=== PATIENT | female | born 1935 | race Two or more races ===

== ENCOUNTER 2024-04-03 00:13 | Inpatient (IN) | payer MEDICARE, MEDICAID ==
[~2024-04-03] VITALS: Ht 142.2 cm; Wt 32.0 kg
[2024-04-03 01:08] LABS: Basophils # (auto) 0 10 ^3/uL (0-0.2); Basophils % (auto) 0.3 % (0.0-2.0); Eosinophils # (auto) 0 10 ^3/uL (0-0.8); Eosinophils % (auto) 0.3 % (0.0-7.0); Hematocrit 42.1 % (36.0-46.0); Hemoglobin 13.9 g/dL (12.2-16.2); Lymphocytes # (auto) 0.4 10 ^3/uL (0.4-5.4); Lymphocytes % (auto) 2.4 % (10.0-50.0); Mean Corpuscular Hemoglobin 30.2 pg (28.0-32.0); Mean Corpuscular Volume 91.5 fL (80.0-100.0); Monocytes # (auto) 0.6 10 ^3/uL (0-1.3); Platelet Count (auto) 227 10^3/uL (140-450); Red Cell Distribution Width 13.1 % (11.8-14.3); White Blood Cell 15.1 10^3/uL (4.4-10.8)
[2024-04-03 01:10] LABS: Chloride 103 mmol/L (98-107); Potassium 3.8 mmol/L (3.5-5.1); Sodium 139 mmol/L (136-145)
[2024-04-03 01:11] LABS: Anion Gap 10 (5-15); Carbon Dioxide 26 mmol/L (20-31)
[2024-04-03 01:16] LABS: BUN/Creatinine Ratio 52.1 (10.0-20.0); Lipase 25 U/L (12-53)
[2024-04-03 01:35] LABS: Blood Urea Nitrogen 38 mg/dL (9-23); Glucose 393 mg/dL (74-106)
--- NOTE | 2024-04-03 02:23 | ED.PDOC ---
GI ASSESSMENT HPI Comments 88-year-old female brought in by daughter. Daughter states patient has had three episodes of vomiting. Woke up at 9:00 a.m.. had an episode of vomiting patient took a nap when she woke up again she was feeling tired and weak. Had two more episodes of vomiting. Daughter states she may have eaten some bad or drinking some bad. Has not eaten anything all day. Daughter states that when she stands up patient says she feels like she was going to pass out. Nothing makes it better, standing and walking makes it worse. 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 SPIDER History: No Pertinent ASSEMBLER CATERPILLAR SPIDER History Constitutional: denies: chills, diaphoresis, fatigue, fever, malaise, sweats, weakness, others EENTM: denies: blurred vision, double vision, ear bleeding, ear discharge, ear drainage, ear pain, ear ringing, eye pain, eye redness, hearing loss, mouth pain, mouth swelling, nasal discharge, nose bleeding, nose congestion, nose pain, photophobia, tearing, throat pain, throat swelling, voice changes, others Respiratory: denies: cough, hemoptysis, orthopnea, SOB at rest, shortness of breath, SOB with excertion, stridor, wheezing, others Cardiovascular: denies: chest pain, dizzy spells, diaphoresis, Dyspnea on exertion, edema, irregular heart beat, left arm pain, lightheadedness, palpitations, PND, syncope, others Gastrointestinal: reports: nausea, vomiting; denies: abdomen distended, abdominal pain, blood streaked bowels, constipated, diarrhea, dysphagia, difficulty swallowing, hematemesis, melena, poor appetite, poor fluid intake, rectal bleeding, rectal pain, others Genitourinary: denies: abnormal vagina bleeding, burning, dyspareunia, dysuria, flank pain, frequency, hematuria, incontinence, pain, , vagina discharge, urgency, others Neurological: denies: dizziness, fainting, headache, left sided numbness, left sided weakness, numbness, paresthesia, pre-existing deficit, right sided numbness, right sided weakness, seizure, speech problems, tingling, tremors, weakness, others Musculoskeletal: denies: back pain, gout, joint pain, joint swelling, muscle pain, muscle stiffness, neck pain, others Integumetry: denies: bruises, change in color, change in hair/nails, dryness, laceration, lesions, lumps, rash, wounds, others Allergic/Immunocompromised: denies: Difficulty Healing, Frequent Infections, Hives, Itching, others Hematologic/Lymphatic: denies: anemia, blood clots, easy bleeding, easy bruising, swollen glands, others Physical Exam General Appearance: No Apparent Distress, Normal HEENT: Normal ENT Inspection, Pharynx Normal, TMs Normal Neck: Full Range of Motion Respiratory: Chest Non-Tender, Lungs Clear, No Accessory Muscle Use, No Respiratory Distress, Normal Breath Sounds Cardiovascular: No Edema, No JVD, No Murmur, No Gallop, Normal Peripheral Pulses, Regular Rate/Rhythm Breast Exam: Deferred Gastrointestinal: No Organomegaly, Non Tender, No Pulsatile Mass, Normal Bowel Sounds, Soft Genitalia: Deferred Pelvic: Deferred Rectal: Deferred Extremities: No calf tenderness, Normal capillary refill, Normal inspection, Normal range of motion, Non-tender, No pedal edema Musculoskeletal : Apperance: Normal Neurologic: Alert, clinical outcomes manager II-XII nml as Tested, No Motor Deficits, Normal Affect, Normal Mood, No Sensory Deficits Cerebellar Function: Normal Reflexes: Normal Skin: Dry, Normal Color, Warm Lymphatic: No Adenopathy Was a procedure done? Was a procedure done?: No GI differential Dx Differential Diagnosis: Gastritis/PUD, Gastroenteritis, GI hemorrhage, Hernia, UTI, Dehydration, Diabetes/ DKA X-Ray, Labs, Meds, VS Vital Signs Date Time Temp Pulse Resp B/P (MAP) Pulse Ox O2 Delivery O2 Flow Rate FiO2 04/03/24 00:30 98.0 81 18 171/64 (99) 97 Lab Test 04/03/24 00:48 04/03/24 00:25 Range/Units White Blood Count 15.1 H 4.4-10.8 10^3/uL Red Blood Count 4.60 4.0-5.20 10^6/uL Hemoglobin 13.9 12.2-16.2 g/dL Hematocrit 42.1 36.0-46.0 % Mean Corpuscular Volume 91.5 80.0-100.0 fL Mean Corpuscular Hemoglobin 30.2 28.0-32.0 pg Mean Corpuscular Hemoglobin Concent 33.0 32.0-36.0 g/dL Red Cell Distribution Width 13.1 11.8-14.3 % Platelet Count 227 140-450 10^3/uL Mean Platelet Volume 8.9 6.9-10.8 fL Neutrophils (%) (Auto) 93.0 H 37.0-80.0 % Lymphocytes (%) (Auto) 2.4 L 10.0-50.0 % Monocytes (%) (Auto) 4.0 0.0-12.0 % Eosinophils (%) (Auto) 0.3 0.0-7.0 % Basophils (%) (Auto) 0.3 0.0-2.0 % Neutrophils # (Auto) 14.0 H 1.6-8.6 10 ^3/uL Lymphocytes # (Auto) 0.4 0.4-5.4 10 ^3/uL Monocytes # (Auto) 0.6 0-1.3 10 ^3/uL Eosinophils # (Auto) 0 0-0.8 10 ^3/uL Basophils # (Auto) 0 0-0.2 10 ^3/uL Nucleated Red Blood Cells 0.0 % Sodium Level 139 136-145 mmol/L Potassium Level 3.8 3.5-5.1 mmol/L Chloride Level 103 98-107 mmol/L Carbon Dioxide Level 26 20-31 mmol/L Anion Gap 10 5-15 Blood Urea Nitrogen 38 H 9-23 mg/dL Creatinine 0.73 0.550-1.02 mg/dL Glomerular Filtration Rate Calc 80 >90 mL/min BUN/Creatinine Ratio 52.1 H 10.0-20.0 Serum Glucose 393 H 74-106 mg/dL Calcium Level 10.0 8.7-10.4 mg/dL Lipase 25 12-53 U/L POC Glucose 362 H 70-106 mg/dl Assigned to Dr. Dr. Morales Change of Shift?: Yes Departure 1 Departure Time of Disposition: 02:22 Impression: Primary Impression: Hyperglycemia Additional Impressions: Leukocytosis Qualified Codes: D72.825 - Bandemia Acute metabolic encephalopathy Disposition: ADMITTED INPATIENT Condition: Stable Critical Care Note Critical Care Time?: No Stability Stability form required: No Heart Score Heart Score: Heart Score Response (Comments) Value History N/A 0 EKG N/A 0 Age N/A 0 Risk Factors N/A 0 Troponin N/A 0 Total 0 TAYLOR WALKER Apr 03, 2024 02:23
--- NOTE | 2024-04-03 02:44 | DVH ---
CLINICAL HISTORY: vomiting TECHNIQUE: CT of the abdomen and pelvis was performed without intravenous contrast. This exam was per formed according to our departmental dose optimization program. Up-to-date CT equipment and radiation dose reduction techniques are utilized as appropriate. [Radimetrics Exposure Report] CTDI: [CTDIvol] DLP: 234.13 WID: COMPARISON: None FINDINGS: Lower Thorax: Lung bases are clear. Coronary artery calcifications are partially imaged, up to modera te in the left anterior descending artery. Mild aortic valve calcification. Trace pericardial fluid. Normal-sized heart Liver and Biliary system: Unremarkable. Spleen: Unremarkable. Adrenal Glands and Kidneys: Unremarkable. Pancreas and Retroperitoneum: Mildly atrophic pancreas. No retroperitoneal lymphadenopathy. Aorta and Major Vessels: Aortoiliac vessels are normal in caliber with mild calcified atherosclerotic plaque. Bowel, Mesentery and Peritoneal space: Normal caliber small and large bowel. Normal appendix. Scatter ed fluid-filled small bowel loops. There is no free air or fluid collection. Pelvis: Mildly atrophic uterus with calcified fibroids. Moderate distention of the urinary bladder. T here is no pelvic lymphadenopathy. Abdominal wall and Osseous Structures: Bony demineralization. Mild right convexity scoliosis of the l umbar spine. Moderate multilevel lower thoracic and lumbar spondylosis. No destructive osseous lesion prominent disc protrusions at L3-L4 and L4-L5 IMPRESSION: 1. Scattered fluid-filled small bowel loops which could reflect enteritis or be physiologic. 2. Moderate multilevel lumbar spondylosis with prominent disc protrusions at L3-L4 and L4-L5. 3. Fibroid uterus 4. Coronary artery calcifications partially imaged up to moderate in the left anterior descending art sushil; mild aortic valve calcifications.
[2024-04-03] MEDS: SODIUM CHLORIDE 0.9% 500 ML IV ONE ×2 (02:55→08:02)
[2024-04-03 02:56] LABS: Urine Bacteria FEW /hpf (None Seen); Urine Blood Negative /uL (Negative); Urine Clarity Clear (Clear); Urine Color Light-Yellow (Yellow); Urine Protein, UAD Negative (Negative); Urine Specific Gravity 1.025 (1.001-1.035); Urine Squamous Epithelial Cell FEW /hpf (<5); Urine Urobilinogen Normal (Negative); Urine WBC 4 /hpf (0 - 5)
[2024-04-03] MEDS: ONDANSETRON ODT 4 MG TAB PO ONE (02:56)
[2024-04-03] MEDS ORDERED: DEXTROSE (50%) 50ML SYRG IV PRN (03:00)
[2024-04-03] MEDS ORDERED: cloNIDine HCL 0.1 MG TAB PO PRN (03:00)
[2024-04-03] MEDS ORDERED: ACETAMINOPHEN 325 MG TAB PO PRN (03:00)
[2024-04-03] MEDS ORDERED: ONDANSETRON HCL 4 MG/2 ML VIAL IV PRN (03:00)
[2024-04-03 03:04] VITALS: PULSE 73; RESP 18; O2SAT 99
[2024-04-03 03:32] VITALS: BP 99/48; PULSE 82; RESP 16; TEMP 97.9; O2SAT 96
--- NOTE | 2024-04-03 04:00 | DVHHP2 ---
History of Present Illness Reason for Visit: Nausea and vomiting History of Present Illness 88-year-old female presents for evaluation of nausea and vomiting. Patient presents with a one day history of multiple episodes of nausea and vomiting. Patient has decreased appetite. Denies abdominal pain or diarrhea. No fever or chills. No other acute complaints reported. Past Medical History Hypertension diabetes mellitus Past Surgical History Denies Family History Noncontributory Smoke: No ALCOHOL: none Drugs: None Lives: with Family Review of Systems Review of Systems Review of systems are currently negative otherwise addressed in HPI Allergies: Coded Allergies: NO KNOWN ALLERGIES (Unverified , 04/03/24) Medications Current Medications Medications Dose Ordered Sig/[place] Route Start Time Stop Time Status Last Admin Dose Admin Metronidazole 100 ml @ 100 mls/hr Q8HR IV 04/03/24 06:00 Lisinopril 10 mg DAILY PO 04/03/24 10:00 Clonidine HCl 0.1 mg Q6HP PRN PO 04/03/24 03:00 Diagnostic Test (Pha) 1 strip IQ4HR 04/03/24 04:00 Insulin Human Regular IQ4HR SC 04/03/24 04:00 Dextrose 50 ml UD PRN IV 04/03/24 03:00 Acetaminophen/ Hydrocodone Bitart 1 tab Q4HP PRN PO 04/03/24 03:00 Ondansetron HCl 4 mg Q4HP PRN IV 04/03/24 03:00 Acetaminophen 650 mg Q6HP PRN PO 04/03/24 03:00 Exam Vital Signs Vital Signs Date Time Temp Pulse Resp B/P (MAP) Pulse Ox O2 Delivery O2 Flow Rate FiO2 04/03/24 03:04 73 18 99 Room Air* 0 21 04/03/24 03:00 98.6 115/37 (63) 98.6 Exam Gen: 88-year-old female in mild distress Skin: Warm, dry, normal color and texture, no rash. HEENT: Normocephalic atraumatic, mucous membranes moist and pink. Neck: Cervical and supraclavicular nodes normal without enlargement, trachea is midline, thyroid gland is normal without masses. Pulmonary: Clear to auscultation and percussion bilaterally. Cardiac: Regular rate and rhythm. No murmur Abdomen: Soft, nontender, nondistended, bowel sounds present all 4 quadrants, no guarding, no rigidity, no organomegaly. Extremities: No cyanosis, clubbing, no edema Neuro: Cranial nerves II through XII grossly intact, normal affect and speech, no focal motor deficits. Labs/Xrays ORDERING PHYSICIAN: TAYLOR WALKER PROCEDURE(s): ABPL - CT AB PEL WO CON-NO ORAL OR IV REASON: vomiting ORDER NUMBER(s): [id number], ACCESSION NUMBER(s): [id number] CLINICAL HISTORY: vomiting TECHNIQUE: CT of the abdomen and pelvis was performed without intravenous contrast. This exam was performed according to our departmental dose optimization program. Up-to-date CT equipment and radiation dose reduction techniques are utilized as appropriate. [Radimetrics Exposure Report] CTDI: [CTDIvol] DLP: 234.13 WID: COMPARISON: None FINDINGS: Lower Thorax: Lung bases are clear. Coronary artery calcifications are partially imaged, up to moderate in the left anterior descending artery. Mild aortic valve calcification. Trace pericardial fluid. Normal-sized heart Liver and Biliary system: Unremarkable. Spleen: Unremarkable. Adrenal Glands and Kidneys: Unremarkable. Pancreas and Retroperitoneum: Mildly atrophic pancreas. No retroperitoneal lymphadenopathy. Aorta and Major Vessels: Aortoiliac vessels are normal in caliber with mild calcified atherosclerotic plaque. Bowel, Mesentery and Peritoneal space: Normal caliber small and large bowel. Normal appendix. Scattered fluid-filled small bowel loops. There is no free air or fluid collection. Pelvis: Mildly atrophic uterus with calcified fibroids. Moderate distention of the urinary bladder. There is no pelvic lymphadenopathy. Abdominal wall and Osseous Structures: Bony demineralization. Mild right convexity scoliosis of the lumbar spine. Moderate multilevel lower thoracic and lumbar spondylosis. No destructive osseous lesion prominent disc protrusions at L3-L4 and L4-L5 IMPRESSION: 1. Scattered fluid-filled small bowel loops which could reflect enteritis or be physiologic. 2. Moderate multilevel lumbar spondylosis with prominent disc protrusions at L3- L4 and L4-L5. 3. Fibroid uterus 4. Coronary artery calcifications partially imaged up to moderate in the left anterior descending artery; mild aortic valve calcifications. Labs Test 04/03/24 02:35 04/03/24 00:48 04/03/24 00:25 Range/Units Urine Color Light-yellow Yellow Urine Clarity Clear Clear Urine pH 5.0 5.0-9.0 Urine Specific [place] 1.025 1.001-1.035 Urine Protein Negative Negative Urine Ketones Trace Negative Urine Blood Negative Negative /uL Urine Nitrite Negative Negative Urine Bilirubin Negative Negative Urine Urobilinogen Normal Negative mg/dL Urine Leukocyte Esterase Negative Negative /uL Urine RBC 1 0 - 4 /hpf Urine WBC 4 0 - 5 /hpf Urine Squamous Epithelial Cells Few <5 /hpf Urine Bacteria Few H None Seen /hpf Urine Glucose 4+ H Normal mg/dL White Blood Count 15.1 H 4.4-10.8 10^3/uL Red Blood Count 4.60 4.0-5.20 10^6/uL Hemoglobin 13.9 12.2-16.2 g/dL Hematocrit 42.1 36.0-46.0 % Mean Corpuscular Volume 91.5 80.0-100.0 fL Mean Corpuscular Hemoglobin 30.2 28.0-32.0 pg Mean Corpuscular Hemoglobin Concent 33.0 32.0-36.0 g/dL Red Cell Distribution Width 13.1 11.8-14.3 % Platelet Count 227 140-450 10^3/uL Mean Platelet Volume 8.9 6.9-10.8 fL Neutrophils (%) (Auto) 93.0 H 37.0-80.0 % Lymphocytes (%) (Auto) 2.4 L 10.0-50.0 % Monocytes (%) (Auto) 4.0 0.0-12.0 % Eosinophils (%) (Auto) 0.3 0.0-7.0 % Basophils (%) (Auto) 0.3 0.0-2.0 % Neutrophils # (Auto) 14.0 H 1.6-8.6 10 ^3/uL Lymphocytes # (Auto) 0.4 0.4-5.4 10 ^3/uL Monocytes # (Auto) 0.6 0-1.3 10 ^3/uL Eosinophils # (Auto) 0 0-0.8 10 ^3/uL Basophils # (Auto) 0 0-0.2 10 ^3/uL Nucleated Red Blood Cells 0.0 % Sodium Level 139 136-145 mmol/L Potassium Level 3.8 3.5-5.1 mmol/L Chloride Level 103 98-107 mmol/L Carbon Dioxide Level 26 20-31 mmol/L Anion Gap 10 5-15 Blood Urea Nitrogen 38 H 9-23 mg/dL Creatinine 0.73 0.550-1.02 mg/dL Glomerular Filtration Rate Calc 80 >90 mL/min BUN/Creatinine Ratio 52.1 H 10.0-20.0 Serum Glucose 393 H 74-106 mg/dL Calcium Level 10.0 8.7-10.4 mg/dL Lipase 25 12-53 U/L POC Glucose 362 H 70-106 mg/dl Assessment/Plan Assessment/Plan Assessment Acute gastroenteritis Uncontrolled diabetes mellitus Accelerated hypertension Leukocytosis Plan Admit the patient to [facility] to the hospitalist Zeyad IV Resume home medications Maintenance IV fluids Continue treatment per orders. Plan discussed with: Patient My Orders Orders - JOSE SAGASTUME Procedure Category Date Status Time Admit ADMIT 04/03/24 Transmitted 02:40 Metronidazole PHA 04/03/24 In Process 500mg/100ml (Flagyl 06:00 Consistent DIET 04/03/24 Transmitted Carb(Ccho)Diabetes Breakfast Lisinopril Tablet PHA 04/03/24 In Process (Zestril Tablet) 10:00 Clonidine Hcl Tablet PHA 04/03/24 In Process (Catapres Tablet) 03:00 Basic Metabolic Panel LAB 04/04/24 Verified 04:00 Glucose Blood PHA 04/03/24 In Process (Accu-Chek Comfort 04:00 Insulin R (Human) PHA 04/03/24 In Process (Insulin R) 04:00 Dextrose 50% Syringe PHA 04/03/24 In Process 03:00 Hydrocodone-Acet PHA 04/03/24 In Process 5/325mg Tab ([place] 03:00 Ondansetron Hcl PHA 04/03/24 In Process (Zofran) 03:00 Complete Blood Count LAB 04/04/24 Verified 04:00 Condition: Stable LENKA 04/03/24 In Process 02:59 Acetaminophen Tablet PHA 04/03/24 In Process (Tylenol Tablet) 03:00 Bedrest With Bathroom LENKA 04/03/24 In Process Privileg 02:59 Date of Service: Apr 03, 2024 Billing Provider: JOSE SAGASTUME Common Visit Codes: [id number] INP/OBS CARE (HIGH) JOSE SAGASTUME Apr 03, 2024 04:00
[2024-04-03] MEDS: InsuLIN REG 1unit/0.01ml Soln (100units/ml) SC SCH (04:05)
[2024-04-03] MEDS: ACCU-CHEK COMFORT CURVE STRIP VI SCH (04:05)
[2024-04-03] MEDS: metroNIDAZOLE 500MG/100ML 100 ML IV SCH (05:31)
[2024-04-03] MEDS ORDERED: METF-371 PO (05:45)
[2024-04-03] MEDS ORDERED: LISI20TA56 PO (05:45)
[2024-04-03] MEDS ORDERED: hydrALAZINE HCL 20 MG/ML VL IV PRN (07:45)
[2024-04-03 08:00] VITALS: PULSE 82; RESP 20; O2SAT 98
[2024-04-03] MEDS: SODIUM CHLORIDE 0.9% 1,000 ML IV SCH (08:02)
[2024-04-03 08:15] LABS: Amphetamine Screen, Urine Neg (NEGATIVE); Barbiturate Scree,Urine Neg (NEGATIVE); Benzodiazephine Screen, Urine Neg (NEGATIVE); Cannabinoid Screen, Urine Neg (NEGATIVE); Cocaine Screen, Urine Neg (NEGATIVE); Opiate Scree,Urine Neg (NEGATIVE); Phencyclidine Screen, Urine Neg (NEGATIVE)
[2024-04-03] MEDS: D5W/SOD CHLO 0.9% 1,000 ML IV STA (08:17)
[2024-04-03] MEDS: cefTRIAXone 1GM/50ML D5W 50 ML IV ONE (08:30)
[2024-04-03 08:39] VITALS: BP 112/43; PULSE 82; RESP 20; TEMP 98.2; O2SAT 98
[2024-04-03] MEDS: cefTRIAXone 1GM/50ML D5W 50 ML IV SCH (09:00)
[2024-04-03] MEDS: D5W/SOD CHLO 0.9% 1,000 ML IV SCH (09:40)
[2024-04-03] MEDS: LISINOPRIL 5 MG TAB PO SCH (09:42)
[2024-04-03 09:56] LABS: Alanine Aminotransferase 21 U/L (7-40); Alkaline Phosphatase 80 U/L (46-116); Anion Gap 7 (5-15); Aspartate Aminotransferase 24 U/L (13-40); BUN/Creatinine Ratio 50.7 (10.0-20.0); Calcium 9.2 mg/dL (8.7-10.4); Carbon Dioxide 27 mmol/L (20-31); Magnesium 1.7 mg/dL (1.6-2.6); Sodium 143 mmol/L (136-145)
[2024-04-03 09:57] LABS: Albumin 3.8 g/dL (3.2-4.8)
[2024-04-03 10:05] LABS: Bilirubin, Total 0.7 mg/dL (0.2-1.0)
[2024-04-03 10:38] LABS: Blood Urea Nitrogen 36 mg/dL (9-23); Chloride 109 mmol/L (98-107); Glucose 130 mg/dL (74-106)
--- NOTE | 2024-04-03 12:52 | DVHDSRES ---
Discharge Summary Date of Admission Resident Creating Document: NIKOLAS TESFAYE RESIDENT Apr 03, 2024 at 02:40 Date of Discharge: Apr 03, 2024 Admitting Diagnosis Suspected gastroenteritis Labs/Diagnostic Data: Laboratory Results Test 04/03/24 09:00 04/03/24 07:52 04/03/24 02:35 04/03/24 00:48 Sodium Level 143 mmol/L (136-145) Potassium Level 3.0 mmol/L (3.5-5.1) Chloride Level 109 mmol/L (98-107) Carbon Dioxide Level 27 mmol/L (20-31) Anion Gap 7 (5-15) Blood Urea Nitrogen 36 mg/dL (9-23) Creatinine 0.71 mg/dL (0.550-1.02) Glomerular Filtration Rate Calc 83 mL/min (>90) BUN/Creatinine Ratio 50.7 (10.0-20.0) Serum Glucose 130 mg/dL (74-106) Hemoglobin A1c 11.8 % A1C (<5.7) Calcium Level 9.2 mg/dL (8.7-10.4) Magnesium Level 1.7 mg/dL (1.6-2.6) Total Bilirubin 0.7 mg/dL (0.2-1.0) Aspartate Amino Transferase (AST) 24 U/L (13-40) Alanine Aminotransferase (ALT) 21 U/L (7-40) Alkaline Phosphatase 80 U/L (46-116) Total Protein 6.0 g/dL (5.7-8.2) Albumin 3.8 g/dL (3.2-4.8) Thyroid Stimulating Hormone (TSH) 0.48 uIU/mL (0.55-4.78) Plasma/Serum Blood Alcohol < 3.0 mg/dL (<10) POC Glucose 75 mg/dl (70-106) Urine Color Light-yellow (Yellow) Urine Clarity Clear (Clear) Urine pH 5.0 (5.0-9.0) Urine Specific [place] 1.025 (1.001-1.035) Urine Protein Negative (Negative) Urine Ketones Trace (Negative) Urine Blood Negative /uL (Negative) Urine Nitrite Negative (Negative) Urine Bilirubin Negative (Negative) Urine Urobilinogen Normal mg/dL (Negative) Urine Leukocyte Esterase Negative /uL (Negative) Urine RBC 1 /hpf (0 - 4) Urine WBC 4 /hpf (0 - 5) Urine Squamous Epithelial Cells Few /hpf (<5) Urine Bacteria Few /hpf (None Seen) Urine Glucose 4+ mg/dL (Normal) Urine Opiates Screen Neg (NEGATIVE) Urine Fentanyl Screen Neg (NEGATIVE) Urine Barbiturates Screen Neg (NEGATIVE) Urine Phencyclidine Screen Neg (NEGATIVE) Urine Amphetamines Screen Neg (NEGATIVE) Urine Benzodiazepines Screen Neg (NEGATIVE) Urine Cocaine Screen Neg (NEGATIVE) Urine Cannabinoids Screen Neg (NEGATIVE) White Blood Count 15.1 10^3/uL (4.4-10.8) Red Blood Count 4.60 10^6/uL (4.0-5.20) Hemoglobin 13.9 g/dL (12.2-16.2) Hematocrit 42.1 % (36.0-46.0) Mean Corpuscular Volume 91.5 fL (80.0-100.0) Mean Corpuscular Hemoglobin 30.2 pg (28.0-32.0) Mean Corpuscular Hemoglobin Concent 33.0 g/dL (32.0-36.0) Red Cell Distribution Width 13.1 % (11.8-14.3) Platelet Count 227 10^3/uL (140-450) Mean Platelet Volume 8.9 fL (6.9-10.8) Neutrophils (%) (Auto) 93.0 % (37.0-80.0) Lymphocytes (%) (Auto) 2.4 % (10.0-50.0) Monocytes (%) (Auto) 4.0 % (0.0-12.0) Eosinophils (%) (Auto) 0.3 % (0.0-7.0) Basophils (%) (Auto) 0.3 % (0.0-2.0) Neutrophils # (Auto) 14.0 10 ^3/uL (1.6-8.6) Lymphocytes # (Auto) 0.4 10 ^3/uL (0.4-5.4) Monocytes # (Auto) 0.6 10 ^3/uL (0-1.3) Eosinophils # (Auto) 0 10 ^3/uL (0-0.8) Basophils # (Auto) 0 10 ^3/uL (0-0.2) Nucleated Red Blood Cells 0.0 % Lipase 25 U/L (12-53) Other Laboratory Tests 04/03/24 09:00 04/03/24 00:48 Brief Hx & Hospital Course: Patient is 88 years old female with past medical history of dementia, hypertension, diabetes mellitus type 2, was brought in by the family due to nausea and vomiting. As per family daughter Jocelyn patient was throwing 1 day ago around 4:00 p.m. 3-4 times, vomiting was mostly watery and food but no blood. Patient also reported feeling dizzy after that but did not lose consciousness. Patient also endorsed decreased appetite lately. Patient denied any fever, chest pain, shortness of breath, sick contact, dysuria, acute joint pain or swelling. Initial lab workup revealed leukocytosis WBC 15.1, POC series 62, CT abdomen revealedScattered fluid-filled small bowel loops which could reflect enteritis or be physiologic. Moderate multilevel lumbar spondylosis with prominent disc protrusions at L3-L4 and L4-L5., Fibroid uterus. Coronary artery calcifications partially imaged up to moderate in the left anterior descending artery; mild aortic valve calcifications. During hospitalization patient was treated conservatively and symptoms improved. Patient's nausea and vomiting subsided. Patient is being discharged home in hemodynamically stable condition. Patient was advised to follow up with the primary care physician in 1 week. General examination- awake, alert, not in acute distress HEENT- PEERLA, no acute nasal discharge Cardiovascular- S1-S2 audible, rate and rhythm regular, no murmur Respiratory- CTAB, no wheeze or rhonchi Gastrointestinal-nontender, bowel sound+. Nondistended Musculoskeletal-no acute joint swelling or tenderness or redness# Lower extremity- no leg edema Neurological- cranial nerves intact, no acute dysarthria or dysphagia Psychiatry- denies depression or SI or HI Skin- no acute rash or purpura Condition at Discharge: Stable Final Diagnosis/Problems List Uncontrolled diabetes mellitus Acute gastroenteritis likely viral Dementia Hypertension Leukocytosis likely reactive Discharge Disposition: Home Discharge Instruct/Medications Diet: Consistent carbohydrate Follow Up/Referral: Follow up with the primary care physician in 1 week Avoid dehydration Medications: Resume home medications Discharge Statement: "Patient was advised to return to the ER or call 911 if any headaches, dizziness, shortness of breath, chest pain, abdominal pain, bleeding, fevers, or worsening of medical condition. Patient was counseled about treatment plan, medications, possible side effects, patientverbalized understanding. All questions were answered to the best of my ability. This discharge took greater then 30 minutes in planning, reviewing documentation, counseling the patient, and discussing with other team members." ASSESSMENT ASSESSMENT Assessment Date of Service: Apr 03, 2024 Billing Provider: LACEY GTZ MD Common Visit Codes: [id number]/[id number] DISCH DAY >30min NIKOLAS TESFAYE RESIDENT Apr 03, 2024 12:52 LACEY GTZ MD Apr 04, 2024 10:48
[2024-04-03 13:00] VITALS: BP 123/57; PULSE 77; RESP 18; TEMP 99.5; O2SAT 98
[2024-04-03] MEDS: HYDROcodone-ACET 5/325MG TAB PO PRN (13:45)
[2024-04-03 15:32] VITALS: BP 112/43; PULSE 82; RESP 20; TEMP 98.2; O2SAT 98
== END 2024-04-03 17:43 | disposition home or self-care (01) | DRG 637 ==
LOC: ER 00:13 → OVERFLOW 02:40 → WEST WING 03:23 → CENTRAL 10:25
PROVIDERS: ADMIT Internal Medicine Geriatric Medicine; ATTEND Internal Medicine Geriatric Medicine
DX: E11.65 Type 2 diabetes mellitus with hyperglycemia (principal); G93.41 Metabolic encephalopathy; Z68.1 Body mass index [BMI] 19.9 or less, adult; A08.4 Viral intestinal infection, unspecified; I10 Essential (primary) hypertension; D72.829 Elevated white blood cell count, unspecified; F03.90 Unspecified dementia, unspecified severity, without behavioral disturbance, psychotic disturbance, mood disturbance, and anxiety
CPT/HCPCS: 36415; 74176; 80048; 80053; 80307; 80320; 81001; 82962; 83036; 83690; 83735; 84443; 85025; 96360; G0378; J1815; J3490; J7042; Q0162

== ENCOUNTER 2024-06-06 21:54 | Emergency (ER) | payer MEDICARE, MEDICAID ==
[~2024-06-06] VITALS: Ht 139.7 cm; Wt 34.0 kg
[~2024-06-06 21:54] MED LIST: LISI20TA56 PO; METF-371 PO
--- NOTE | 2024-06-06 22:34 | ED.PDOC ---
Musculoskeletal HPI Comments HPI: Poor Historian. 88-year-old female presents to emergency department for evaluation of a mechanical fall. Patient was walking and held by her daughter at bedside. As the patient was walking she was raising her leg to go over a step and did not see it and she twisted her right ankle. Complains of right ankle pain and swelling. There was no head or neck injury. Patient did not collapse of the ground because she was already held by her relative who was holding her hands the whole time through the walk. Past Medical History: Diabetes, Past Surgical History: Denies any REVIEW OF SYSTEMS: CONSTITUTIONAL: Denies acute: fever, diaphoresis, chills, generalized weakness. HEAD: Denies acute: headache, photophobia Eyes: Denies acute: Double vision, vision loss, eye pain, eye discharge. EARS: Denies acute: tinnitus, hearing loss, ear discharge, ear pain, THROAT: Denies acute: sore throat, swelling, difficulty swallowing , pain with swall owing, change in voice. NECK: Denies acute: neck pain, neck swelling, stiff neck. HEART: Denies acute : chest pain, palpitations, LUNGS: Denies acute: SOB, wheezing, cough, hemoptysis ABDOMEN: Denies acute: abdominal pain, Nausea, Vomiting, diarrhea, melena , hematemesis, hematochezia SKIN: Denies acute: rash, redness, lesions, itchiness. EXTREMITIES: Denies acute: calf pain, numbness, tingling, weakness, Denies acute: Low back pain. Neuro: Denies acute: focal neurological deficit, motor or sensory focal neurological deficit, tremors, seizure like activity, confusion, dizziness, change in mental status, loss of bowel or bladder function, cauda equina like symptoms. : Denies acute: dysuria, hematuria, flank pain, increase in urinary frequency. PSYCH: Denies acute: hallucination, suicidal ideation, homicidal ideation. FEMALE: Denies acute: abnormal vaginal bleeding, foul odor, unusual discharge. PHYSICAL EXAM: General: Mild acute distress, awake and alert. Head: normocephalic, atraumatic. Throat: Normal phonation. Eyes:, no erythema, no purulent discharge, no proptosis, no icterus. Lungs: no apparent respiratory distress, Able to speak in full sentences. Neuro: Awake, Alert, oriented to name, self, situation, follows commands GCS=15. Speech is normal. Skin: no petechia, no purpura, no cyanosis, non-pale, not jaundice. Lower extremities: --no - Pitting edema Right lateral malleoli deformity and swelling and tenderness to palpation, no calf TTP. Noted anterior arreola bruise that is tender to palpation Patient is neurovascularly intact in the affected extremity. Sensory and motor are present. Pedal pulses palpable. Makes eye contact. moves all four extremities. Face: no apparent facial droop. Pedal pulses are palpable. ED COURSE: Chief Complaint: Lower Extremity Time Seen by MD: 22:05 Primary Care Provider: DR MENJIVAR Reviewed Notes: Nurses Notes, Allergies Allergies: Coded Allergies: NO KNOWN ALLERGIES (Unverified , 04/03/24) Home Meds Reported Medications Lisinopril (Lisinopril) 20 Mg Tab, 20 MG PO DAILY for 30 Days, MG 04/03/24 Metformin Hydrochloride (Metformin Hcl) 850 Mg Tab, 850 MG PO DAILY for 30 Days, MG 04/03/24 Information Source: Patient, Relative Mode of Arrival: Wheelchair Location: Right Past Medical History PAST MEDICAL HISTORY: Denies Surgical History: Denies all surgeries CHAIR MAKER History: No Pertinent CHAIR MAKER History Was a procedure done? Was a procedure done?: No Differential Diagnosis EXT Differential Diagnosis: Cellulitis, CHF, Deep Vein Thrombosis, Compartment Syndrome, Fracture, Sprain, Dislocation, Laceration, Gout, DJD, Contusion, Septic, Neurovascular injury, Arthritis X-Ray, Labs, Meds, VS Vital Signs Date Time Temp Pulse Resp B/P (MAP) Pulse Ox O2 Delivery O2 Flow Rate FiO2 06/07/24 00:32 98.5 73 17 151/54 (86) 97 98.5 06/07/24 00:32 73 17 97 Room Air 06/06/24 22:23 98.8 71 18 138/61 (86) 99 [facility] [id number] [facility] [address] Ph: [phone] DIAGNOSTIC IMAGING Diagnostic Imaging Report : [id number] Signed PATIENT: MAGUI LIGHT ACCT: [id number] UNIT: [id number] : 1935 LOC: ER ROOM / BED: / AGE / SEX: 88 / F ADM STATUS: REG ER SERVICE 16 ORDERING PHYSICIAN: ABRAHAM SHAFFER DO PROCEDURE(s): RTBFB - R TIB FIB XRAY REASON: pain fall injury ORDER NUMBER(s): [id number], ACCESSION NUMBER(s): [id number] XY R TIB FIB XRAY, INDICATION: pain fall injury TECHNICAL DATA: Frontal and lateral views were obtained of the . COMPARISON: None FINDINGS: Bones are osteopenic. There is an old Massiunueve fracture of the tibia and fibula which have healed there is also deformity involving the lateral aspect of the lateral econdyle of the femur. Possible old fracture. And there is an avulsion fracture involving the tip of the medial malleolus which is old. But there soft tissue swelling adjacent to the lateral malleolus suggesting soft tissue injury IMPRESSION: 1. Old healed fractures. No acute fractures. Soft tissue injury adjacent to lateral malleolus ATED BY: JV RILEY MD DICTATED DATE/TIME: 06/06/242342 SIGNED BY: JV RILEY MD SIGNED DATE/TIME: 06/06/242342 CC: [place] [address] Ph: [phone] DIAGNOSTIC IMAGING Diagnostic Imaging Report : [id number] Signed PATIENT: MAGUI LIGHT ACCT: [id number] UNIT: [id number] : 1935 LOC: ER ROOM / BED: / AGE / SEX: 88 / F ADM STATUS: REG ER SERVICE 16 ORDERING PHYSICIAN: ABRAHAM SHAFFER DO PROCEDURE(s): RANKL - R ANKLE 3 VIEW REASON: pain/injury ORDER NUMBER(s): [id number], ACCESSION NUMBER(s): [id number] CLINICAL INFORMATION: 88 years old, Female; pain/injury. TECHNIQUE: 3 views of the right ankle were obtained. COMPARISON: None Findings: Bones are osteopenic without evidence for an acute fracture. Patient has a large osteophyte projecting from the attachment of the plantar fascia of the calcaneus measuring 10.3 mm. Patient has an old healed spiral fracture of the distal tibia. But no new fractures are seen. There is a old avulsion fracture involving the tip of the medial malleolus. There is significant soft tissue swelling adjacent to the lateral malleolus. IMPRESSION: 1. Lateral soft tissue injury ATED BY: JV RILEY MD DICTATED DATE/TIME: 06/06/242339 SIGNED BY: JV RILEY MD SIGNED DATE/TIME: 06/06/242339 CC: Time of 1ST Reevaluation: 01:59 Reevaluation 1ST: Improved Patient Education/Counseling: Diagnosis, Treatment Family Education/Counseling: Diagnosis, Treatment Comments Patient presented with the above HPI.---ankle pain injury---workup was initiated. patient was found with the above mentioned diagnosis. the following medications were ordered: please refer to order lists of meds and tests obtained by myself Dr. Shaffer. Patient ED course and VS have been stabilized. Patient has been reassessed in the ED and remained in a stable condition. Pertinent incidental findings were discussed with the patient and/or family. Patient/family voices understanding and is agreeable with plan. Patient has been observed in the ED adequate length of time to insure improvement/stability. Escalation of care considered: Consideration of escalation to observation or admission Mikel wrap was ordered for the patient. She is not on blood thinners. Patient was DISCHARGED home in a stable condition. All the reports of any imaging studies that were ordered by myself were reviewed by myself. Departure 1 Departure Time of Disposition: 23:54 Impression: Primary Impression: Right ankle sprain Disposition: 01 HOME / SELF CARE / HOMELESS Condition: Stable Additional Instructions: Additional discharge instructions: You MUST follow-up with your primary care/family doctor in 1 to 2 days. If you are unable to see your primary care/family doctor, please return to our emergency room for re-assessment and re-evaluation in 1 to 2 days. Return to the emergency room here in our facility or to the nearest ER [facility] if your symptoms change or worsen. CONSULTATIONS: you MUST Follow-up for consultation as soon as possible with: -orthopedic doctor in 1-2 days. Please call for appointment. You MUST call the consultants office yourself to make an appointment. You may need to arrange that through your insurance and/or your primary/family doctor. If you are unable to see the outreach consultant in 1 to 2 days, you must return to our emergency room (or any other ER of your choice) for re-assessment and re- evaluation. Adequate fluid hydration. Below is a copy of your radiological report for follow up: [place] [address] Ph: [phone] DIAGNOSTIC IMAGING Diagnostic Imaging Report : [id number] Signed PATIENT: MAGUI LIGHT ACCT: [id number] UNIT: [id number] : 1935 LOC: ER ROOM / BED: / AGE / SEX: 88 / F ADM STATUS: REG ER SERVICE 16 ORDERING PHYSICIAN: ABRAHAM SHAFFER DO PROCEDURE(s): RTBFB - R TIB FIB XRAY REASON: pain fall injury ORDER NUMBER(s): [id number], ACCESSION NUMBER(s): [id number] XY R TIB FIB XRAY, INDICATION: pain fall injury TECHNICAL DATA: Frontal and lateral views were obtained of the . COMPARISON: None FINDINGS: Bones are osteopenic. There is an old Massiunueve fracture of the tibia and fibula which have healed there is also deformity involving the lateral aspect of the lateral econdyle of the femur. Possible old fracture. And there is an avulsion fracture involving the tip of the medial malleolus which is old. But there soft tissue swelling adjacent to the lateral malleolus suggesting soft tissue injury IMPRESSION: 1. Old healed fractures. No acute fractures. Soft tissue injury adjacent to lateral malleolus ATED BY: JV RILEY MD DICTATED DATE/TIME: 06/06/242342 SIGNED BY: JV RILEY MD SIGNED DATE/TIME: 06/06/242342 CC: [address] [address] Ph: [phone] DIAGNOSTIC IMAGING Diagnostic Imaging Report : [id number] Signed PATIENT: MAGUI LIGHT ACCT: [id number] UNIT: [id number] : 1935 LOC: ER ROOM / BED: / AGE / SEX: 88 / F ADM STATUS: REG ER SERVICE 16 ORDERING PHYSICIAN: ABRAHAM SHAFFER DO PROCEDURE(s): RANKL - R ANKLE 3 VIEW REASON: pain/injury ORDER NUMBER(s): [id number], ACCESSION NUMBER(s): [id number] CLINICAL INFORMATION: 88 years old, Female; pain/injury. TECHNIQUE: 3 views of the right ankle were obtained. COMPARISON: None Findings: Bones are osteopenic without evidence for an acute fracture. Patient has a large osteophyte projecting from the attachment of the plantar fascia of the calcaneus measuring 10.3 mm. Patient has an old healed spiral fracture of the distal tibia. But no new fractures are seen. There is a old avulsion fracture involving the tip of the medial malleolus. There is significant soft tissue swelling adjacent to the lateral malleolus. IMPRESSION: 1. Lateral soft tissue injury ATED BY: JV RILEY MD DICTATED DATE/TIME: 06/06/242339 SIGNED BY: JV RILEY MD SIGNED DATE/TIME: 06/06/242339 CC: Discharged With: Self Critical Care Note Critical Care Time?: No ABRAHAM SHAFFER DO Jun 06, 2024 22:34
--- NOTE | 2024-06-06 23:42 | DVH ---
CLINICAL INFORMATION: 88 years old, Female; pain/injury. TECHNIQUE: 3 views of the right ankle were obtained. COMPARISON: None Findings: Bones are osteopenic without evidence for an acute fracture. Patient has a large osteophyte projecti ng from the attachment of the plantar fascia of the calcaneus measuring 10.3 mm. Patient has an old healed spiral fracture of the distal tibia. But no new fractures are seen. There is a old avulsion fracture involving the tip of the medial malleolus. There is significant soft tissue swelling adjacent to the lateral malleolus. IMPRESSION: 1. Lateral soft tissue injury
--- NOTE | 2024-06-06 23:45 | DVH ---
XY R TIB FIB XRAY, INDICATION: pain fall injury TECHNICAL DATA: Frontal and lateral views were obtained of the . COMPARISON: None FINDINGS: Bones are osteopenic. There is an old Massiunueve fracture of the tibia and fibula which have healed there is also deformity involving the lateral aspect of the lateral econdyle of the femur. Possible old fracture. And there is an avulsion fracture involving the tip of the medial malleolus which is ol d. But there soft tissue swelling adjacent to the lateral malleolus suggesting soft tissue injury IMPRESSION: 1. Old healed fractures. No acute fractures. Soft tissue injury adjacent to lateral malleolus
[2024-06-07 00:32] VITALS: BP 151/54; PULSE 73; RESP 17; TEMP 98.5; O2SAT 97
== END 2024-06-07 00:36 | disposition home or self-care (01) ==
LOC: ER 21:54
DX: S93.401A Sprain of unspecified ligament of right ankle, initial encounter (principal); E11.9 Type 2 diabetes mellitus without complications; Z79.84 Long term (current) use of oral hypoglycemic drugs; W18.39XA Other fall on same level, initial encounter; Y93.01 Activity, walking, marching and hiking; Y92.89 Other specified places as the place of occurrence of the external cause; Y99.8 Other external cause status
CPT/HCPCS: 73590; 73610